=== PATIENT | male | born 1940 | race Two or more races ===

== ENCOUNTER → 2017-09-15 06:58 | Outpatient (CLI) | payer OTHER | END | disposition home or self-care (01) | LOC: LAB 06:58 | DX: D64.89 Other specified anemias (principal); M06.4 Inflammatory polyarthropathy ==

== ENCOUNTER 2017-09-15 07:31 | Outpatient (CLI) | payer OTHER | END 2017-09-15 07:34 | disposition home or self-care (01) | LOC: RAD 07:31 | DX: M76.51 Patellar tendinitis, right knee (principal) ==

== ENCOUNTER 2019-06-28 09:22 | Outpatient (CLI) | payer OTHER | END 2019-06-28 09:36 | disposition home or self-care (01) | LOC: SONOGRAMA 09:22 | DX: E04.2 Nontoxic multinodular goiter (principal) ==